=== PATIENT | female | born 1985 | race Caucasian/White ===

== ENCOUNTER 2025-02-18 19:01 | Inpatient (IN) | payer SELFPAY ==
[~2025-02-18] VITALS: Ht 165.1 cm; Wt 74.8 kg
[2025-02-18 19:04] VITALS: O2SAT 98
[2025-02-18 20:08] LABS: HEMATOCRIT. 33.0 % (36.0-48.0); HEMOGLOBIN. 10.4 g/dL (12.0-16.0); MEAN PLATELET VOLUME 8.7 fl (7.4-10.4); PLATELET 336 x1000/uL (130-400); RED BLOOD CELL COUNT 4.34 mill/uL (4.2-5.4); RED CELL DISTRIBUTION WIDTH 19.7 % (11.6-14.6)
[2025-02-18 20:21] LABS: CREATININE 1.1 mg/dL (0.6-1.0)
[2025-02-18 20:22] LABS: HCG SCREEN NEGATIVE; UREA NITROGEN BLOOD 8 mg/dL (9-23)
[2025-02-18 20:23] LABS: ASPARTATE AMINOTRANSFERASE 16 IU/L (<34); TROPONIN I HIGH SENSITIVITY 31 ng/L (3.0-34)
[2025-02-18 20:24] LABS: BILIRUBIN DIRECT 0.1 mg/dL (<=3.0); BILIRUBIN TOTAL 0.5 mg/dL (0.1-1.0); PROTEIN TOTAL 7.5 g/dL (6.0-8.3)
[2025-02-18 23:47] LABS: TROPONIN I HIGH SENSITIVITY 49 ng/L (3.0-34)
[2025-02-18 23:51] LABS: LYMPHOCYTES % MANUAL 4.0 % (20.0-60.0); MONOCYTES % MANUAL 3.0 % (2.0-8.0); NEUTROPHILS % MANUAL 93.0 % (45.0-75.0); PLATELET ESTIMATE NORMAL
[2025-02-19 02:30] VITALS: BP 115/64; PULSE 82; RESP 18; TEMP 36.5848
[2025-02-19 04:00] VITALS: BP 131/71; PULSE 81; RESP 18; TEMP 36.2; O2SAT 99
[2025-02-19] MEDS ORDERED: ACETAMINOPHEN 325MG TABLET PO PRN ×2 (04:00)
[2025-02-19] MEDS ORDERED: IPRATROPIUM/ALBUTEROL 0.5-3(2.5)MG/3ML NEB HHN PRN (04:00)
[2025-02-19] MEDS ORDERED: KETOROLAC 30MG/ML VIAL IV PRN (04:00)
[2025-02-19] MEDS ORDERED: ONDANSETRON HCL 4MG/2ML INJ IV PRN (04:00)
[2025-02-19] MEDS ORDERED: LORAZEPAM 2MG/ML UD SYRINGE IV PRN (04:45)
[2025-02-19] MEDS: DEXT 5%/0.45% NACL 1000ML 1,000 ML IV SCH (04:53)
[2025-02-19] MEDS: PANTOPRAZOLE SODIUM 40 MG/VIAL IV SCH (04:54)
[2025-02-19] MEDS: MAGNESIUM 2 G PREMIX 50 ML IV NR (04:56)
[2025-02-19] MEDS: FOLIC ACID 1 MG, THIAMINE HCL 100 MG, MVI, ADULT NO.1 10 ML in DEXTROSE 5% WATER 1,000 ML IV ONE (06:46)
[2025-02-19 08:00] VITALS: BP 108/55; PULSE 68; RESP 15; TEMP 36.4; O2SAT 97
[2025-02-19 12:00] VITALS: BP 123/65; PULSE 63; RESP 16; TEMP 36.5; O2SAT 97
[2025-02-19 13:34] LABS: FOLIC ACID (FOLATE) SERUM > 20.00 ng/mL (>5.38)
[2025-02-19 13:35] LABS: VITAMIN B12 SERUM 1613 pg/mL (211-911)
[2025-02-19 16:00] VITALS: BP 120/72; PULSE 65; RESP 16; TEMP 36.4; O2SAT 97
[2025-02-19 18:07] VITALS: BP 120/72; PULSE 65; RESP 16; TEMP 97.6
== END 2025-02-19 18:25 | disposition home or self-care (01) | DRG 812 ==
LOC: ER 19:01 → EDBEDREQTM 02-19 01:48 → EDBEDREQ 02-19 01:48 → ENRESERV 02-19 01:55 → 6WST 02-19 02:18
PROVIDERS: ADMIT Internal Medicine; ATTEND Internal Medicine
DX: T41.291A Poisoning by other general anesthetics, accidental (unintentional), initial encounter (principal); N17.9 Acute kidney failure, unspecified; D50.9 Iron deficiency anemia, unspecified; D72.829 Elevated white blood cell count, unspecified; F14.90 Cocaine use, unspecified, uncomplicated; F19.10 Other psychoactive substance abuse, uncomplicated; F10.929 Alcohol use, unspecified with intoxication, unspecified; E83.42 Hypomagnesemia; R06.03 Acute respiratory distress; Y90.0 Blood alcohol level of less than 20 mg/100 ml; F41.1 Generalized anxiety disorder; R91.8 Other nonspecific abnormal finding of lung field; Y92.89 Other specified places as the place of occurrence of the external cause
CPT/HCPCS: 36415; 71045; 80048; 80076; 80320; 82607; 82728; 82746; 82962; 83540; 83550; 83605; 83735; 84145; 84484; 84703; 85025; 93005; 99285; A4606; G0378; J2470; J3411; J3475; J3490; J7070; G0480